=== PATIENT | male | born 1990 ===

== ENCOUNTER → 2022-02-14 13:30 | Outpatient (CLI) | payer OTHER, SELFPAY ==
--- NOTE | 2022-02-14 13:35 | DI.MRI.S_ITS ---
PROCEDURE: MR ANKLE LT WO CON INDICATIONS: Other instability, left ankle TECHNIQUE: Noncontrast sagittal T1 spin echo and T2 fast spin echo with fat saturation, axial proton density fast spin echo and T2 fast spin echo with fat saturation, coronal T1 spin echo and T2 fast spin echo with fat saturation through the ankle/hindfoot. COMPARISON: None. FINDINGS: Image quality: Excellent. Bones and joints: No bone marrow contusions or fractures. No hindfoot coalitions. No osteochondral injuries of the talar dome. No pathologic joint effusions. Medial structures: The posterior tibialis, flexor digitorum longus, and flexor hallucis longus tendons are intact. The posterior tibial neurovascular bundle appears normal within the tarsal tunnel, without extrinsic mass effect. The deep layer (anterior and posterior tibiotalar ligaments) and superficial layer (tibionavicular, tibiospring, and tibiocalcaneal ligaments) of the deltoid ligament appear normal. The spring ligament components (superomedial calcaneonavicular, medioplantar oblique calcaneonavicular, and inferoplantar longitudinal ligaments) are intact. Lateral structures: The anterior talofibular, calcaneofibular, and posterior talofibular ligaments appear slightly attenuated with intrasubstance T2 hyperintense signal. More superiorly, the anterior and posterior tibiofibular ligaments appear intact, as is the intermalleolar ligament. The tibiofibular syndesmosis is normal in width at 2 mm or less. The peroneus brevis tendon is normal. Thickened peroneus longus tendon at the level of distal calcaneus/calcaneocuboid joint is seen suggestive of low-grade tendinosis. Adjacent bony peroneal tubercle and retrotrochlear prominence are normal in size. The sinus tarsi demonstrates normal fatty signal, without edema, fibrosis, or cyst formation. Visualized sinus tarsi components (cervical ligament, interosseous talocalcaneal ligament, roots of the inferior extensor retinaculum) appear normal. The calcaneonavicular and calcaneocuboid components of the bifurcate ligament appear intact. The dorsal calcaneocuboid ligament appears intact. Anterior structures: The tibialis anterior, extensor hallucis longus, and extensor digitorum longus tendons appear intact. The dorsal talonavicular ligament appears intact. Posterior and plantar structures: Mildly thickened distal Achilles tendon at its insertion on posterior calcaneus is seen suggestive of low-grade tendinosis. No Achilles tendon rupture. Medial and lateral bands of the plantar fascia are of normal thickness. No abductor digiti quinti muscle atrophy to suggest Clark neuropathy. IMPRESSION: 1. No marrow edema. No fracture or dislocation. No osteochondral injury of talar dome. 2. Mild distal Achilles tendinosis at its posterior calcaneal insertion. No full-thickness rupture. 3. Suggestion of low-grade sprain/intrasubstance partial-thickness tear involving anterior and posterior talofibular ligaments. 4. Suggestion of mild tendinosis involving peroneus longus tendon at the level of distal calcaneus/calcaneocuboid joint. Dictated by: Thomas Anthony M.D. on 02/14/2022 at 16:16 Approved by: Thomas Anthony M.D. on 02/14/2022 at 16:18
== END ==
PROVIDERS: Referring Provider Podiatrist; Visit Provider Podiatrist
DX: M25.372 Other instability, left ankle (principal); R26.2 Difficulty in walking, not elsewhere classified; S93.401A Sprain of unspecified ligament of right ankle, initial encounter; M25.572 Pain in left ankle and joints of left foot
CPT/HCPCS: 73721

== ENCOUNTER → 2024-03-10 12:33 | Outpatient (CLI) | payer OTHER, SELFPAY ==
[2024-03-10 13:51] LABS: Alanine Aminotransferase 41 IU/L (<50); Albumin 4.8 g/dL (3.5-5.0); Albumin Globulin Ratio 1.8 (1.0-2.8); Alkaline Phosphatase 69 U/L (38-126); Aspartate Aminotransferase 43 IU/L (17-59); Bilirubin Total 0.7 mg/dL (0.2-1.3); Bilirubin Unconjugated 0.3 mg/dL (0.0-1.1); Globulin 2.7 g/dL (1.7-4.1); HEMOLYSIS < 15 (0-50); Total Protein 7.5 g/dL (6.3-8.2)
[2024-03-10 15:43] LABS: Vitamin D 25 Hydroxy (D3) 35.5 ng/mL (30.0-100.0)
== END ==
PROVIDERS: Referring Provider Chiropractor; Visit Provider Chiropractor
DX: K76.0 Fatty (change of) liver, not elsewhere classified (principal); E55.9 Vitamin D deficiency, unspecified
CPT/HCPCS: 36415; 80076; 82306